=== PATIENT | female | born 1985 | race Caucasian/White ===

== ENCOUNTER 2016-07-27 16:33 | Emergency (ER) | payer OTHER ==
[2016-07-27] MEDS ORDERED: HYDROcod/ACETAM 5/325 MG TABLET PO STA (16:52)
[2016-07-27] MEDS ORDERED: HYDROcod/ACETAM 5/325 MG TABLET ONE (16:53)
== END 2016-07-27 17:47 | disposition home or self-care (01) ==
DX: M25.552 Pain in left hip (principal); F17.200 Nicotine dependence, unspecified, uncomplicated
CPT/HCPCS: 73502; 99283; 99284; A9270